=== PATIENT | female | born 1995 | race Caucasian/White ===

== ENCOUNTER 2024-09-08 10:54 | Emergency (ER) | payer SELFPAY ==
[~2024-09-08] VITALS: Ht 160 cm; Wt 54.1 kg
[2024-09-08 11:04] VITALS: BP 106/74
[2024-09-08] MEDS ORDERED: LAMICTAL200 M1 PO (11:04)
[2024-09-08] MEDS ORDERED: METRONIDAZOLE500 M1 PO (11:23)
[2024-09-08 11:34] LABS: URINE APPEARANCE SLIGHTLY CLOUDY (CLEAR); URINE BILIRUBIN 3+ (NEGATIVE); URINE COLOR ORANGE (YELLOW); URINE GLUCOSE 1+ (NEGATIVE); URINE KETONE 1+ (NEGATIVE); URINE PROTEIN(semi-quant) 3+ (NEGATIVE)
[2024-09-08 11:34] LABS: CLUE CELLS NOT OBSERVED (Not Observd)
[2024-09-08 11:35] LABS: URINE BLOOD NEGATIVE (NEGATIVE); URINE LEUKOCYTE ESTERASE 3+ (NEGATIVE); URINE MUCUS PRESENT (NOT PRESENT); URINE NITRATE POSITIVE (NEGATIVE)
== END 2024-09-08 11:35 | disposition home or self-care (01) ==
LOC: ED 10:54
PROVIDERS: Family Medicine
DX: N76.0 Acute vaginitis (principal)
CPT/HCPCS: Q0111

== ENCOUNTER 2024-11-10 13:54 | Emergency (ER) | payer SELFPAY ==
[~2024-11-10] VITALS: Ht 160 cm; Wt 54.5 kg
[~2024-11-10 13:54] MED LIST: LAMICTAL200 M1 PO; METRONIDAZOLE500 M1 PO
[2024-11-10] MEDS ORDERED: FLAGYL375 MG PO (14:06)
[2024-11-10] MEDS ORDERED: METRONIDAZOLE VG (14:06)
[2024-11-10] MEDS ORDERED: metroNIDAZOLE 250 MG TABLET PO ONE (14:15)
[2024-11-10 14:26] VITALS: BP 122/62
== END 2024-11-10 14:32 | disposition home or self-care (01) ==
LOC: ED 13:54
DX: N76.0 Acute vaginitis (principal)